=== PATIENT | male | born 1925 | race African-American/Black ===

== ENCOUNTER 2016-08-19 02:58 | Inpatient (IN) | payer MEDICARE ==
[2016-08-19] VITALS (62 sets, daily range): BP systolic 72–157; BP diastolic 37–109
[~2016-08-19] VITALS: Ht 177.8 cm; Wt 71.7 kg
[2016-08-19] MEDS ORDERED: ASCORBIC ACID500 MG ORAL (03:23)
[2016-08-19] MEDS ORDERED: ATORVASTATIN CA40 MG ORAL (03:23)
[2016-08-19] MEDS ORDERED: ASPIR 8181 MG ORAL (03:23)
[2016-08-19] MEDS ORDERED: SORBITOL SOLUT500 ML MC (03:33)
[2016-08-19] MEDS ORDERED: TROSPIUM CHLORI20 MG PO (03:33)
[2016-08-19] MEDS ORDERED: MINERAL OIL EN133 ML RC (03:33)
[2016-08-19] MEDS ORDERED: DOCUSATE SODIU250 MG ORAL (03:33)
[2016-08-19] MEDS ORDERED: MULTIVITAMINS1 EAC2 ORAL (03:33)
[2016-08-19] MEDS ORDERED: VITAMIN D250000 UNI1 ORAL (03:33)
[2016-08-19] MEDS ORDERED: ZYLOPRIM100 MG ORAL (03:33)
[2016-08-19] MEDS ORDERED: SENNA S TABLET1 EAC1 PO (03:33)
[2016-08-19] MEDS ORDERED: TYLENOL EXTRA500 MG ORAL (03:33)
[2016-08-19] MEDS ORDERED: COREG25 MG ORAL (03:33)
--- NOTE | 2016-08-19 03:39 | Emergency Room Report ---
History of Present Illness General Chief Complaint: Abnormal Labs Source: Medical Record Present Illness HPI Patient was sent in from custodial with initial complaint of altered mental status Patient had respiratory distress as well Upon arrival of paramedics patient was found to be critically low with glucose Patient did not have IV access and therefore was given glucagon Became somewhat more responsive patient himself continues to be altered and confused history from the patient is not able to be obtained Nursing facility reports change in the patient's respirations over the night No reports of vomiting or diarrhea Unknown regarding chest pain or headache Allergies: Coded Allergies: NSAIDS (NON-STEROIDAL ANTI-INFLAMMA (Verified Allergy, Unknown, 08/19/16) Patient History Past Medical History: see triage record Pertinent Family History: none Reviewed Nursing Documentation: PMH: Agreed, PSxH: Agreed Nursing Documentation-PMH Hx Hypertension: Yes - aortic valve stenosis, left ventricular thrombus Hx Pacemaker: Yes Review of Systems All Other Systems: limited - Other than the ones mentioned in the history of present illness all others are reviewed however they do stay limited due to the patient's mental status Physical Exam Vital Signs Date Time Temp Pulse Resp B/P Pulse Ox O2 Delivery O2 Flow Rate FiO2 08/19/16 02:50 96.4 78 18 115/71 91 Nasal Cannula 4.0 Sp02 EP Interpretation: reviewed, abnormal - On 2 L nasal cannula patient saturates at 98% which is normal General Appearance: moderate distress - Patient appears uncomfortable, mildly tachypneic, sluggish to respond Head: normocephalic, atraumatic Eyes: bilateral eye PERRL ENT: dry mucus membranes Neck: supple, thyroid normal Respiratory: crackles - And mildly tachypneic Cardiovascular #1: regular rate, rhythm, no edema Gastrointestinal: normal bowel sounds, non tender, soft Genitourinary: no CVA tenderness Musculoskeletal: other - No obvious focal deficits patient moves towards physical stimuli in the upper extremity, Neurologic: responsive - To physical stimuli Skin: other - Multiple bruising in the upper extremity evidence of previous right lower abdominal surgery pacemaker palpable left upper chest, Lymphatic: no adenopathy Procedures Critical Care Time Critical Care Time 40 minutes for multiple re\re evaluations Critical presentation findings concerning for respiratory failure And cardiopulmonary failureNot including any procedural time Central Line Central Line : Consent: Emergent Central Line Lumen: triple Maximal Sterile Barrier Tech: yes cap, yes mask, yes sterile gown, yes sterile gloves, yes large sterile sheet, yes hand hygiene, yes chlorhexidine prep Central Line Postion: femoral (R) Anesthesia: Lidocaine cc's of anesthesia: 5 Complications: none Central Line Post Position: sutured Attempts: One Patient Tolerated: Well Complications: None Medical Decision Making Diagnostic Impression: Primary Impression: Sepsis Additional Impressions: CHF (congestive heart failure) Hypoglycemia ER Course Patient is a fairly complex patient with multiple differential to consideration including but not limited to cardiac cardiopulmonary and vascular emergencies Patient required multiple boluses of glucose to increase the glucose level Patient's blood pressure also remained low requiring dopamine drip From previous medical records appears the patient has significant cardiac disease with 20% ef Patient's x-rays also abnormal with signs of atelectasis versus congestion Patient required BiPAP at this time for improved aeration Patient extremely critical at this time unstable for transfer Labs Test 08/19/16 03:20 08/19/16 04:30 08/19/16 04:37 08/19/16 04:40 White Blood Count 13.0 K/UL (4.8-10.8) Red Blood Count 4.51 M/UL (4.70-6.10) Hemoglobin 12.8 G/DL (14.2-18.0) Hematocrit 38.7 % (42.0-52.0) Mean Corpuscular Volume 86 FL (80-99) Mean Corpuscular Hemoglobin 28.3 PG (27.0-31.0) Mean Corpuscular Hemoglobin Concent 32.9 G/DL (32.0-36.0) Red Cell Distribution Width 16.2 % (11.6-14.8) Platelet Count 134 K/UL (150-450) Mean Platelet Volume 8.0 FL (6.5-10.1) Neutrophils (%) (Auto) % (45.0-75.0) Lymphocytes (%) (Auto) % (20.0-45.0) Monocytes (%) (Auto) % (1.0-10.0) Eosinophils (%) (Auto) % (0.0-3.0) Basophils (%) (Auto) % (0.0-2.0) Prothrombin Time 15.8 SEC (9.30-11.50) Prothromb Time International Ratio 1.5 (0.9-1.1) Activated Partial Thromboplast Time 33 SEC (23-33) Sodium Level 140 mEQ/L (135-145) Potassium Level 4.9 mEQ/L (3.4-4.9) Chloride Level 103 mEQ/L (98-107) Carbon Dioxide Level 19 mEQ/L (20-30) Anion Gap 18 (5-15) Blood Urea Nitrogen 107 mg/dL (7-23) Creatinine 3.3 mg/dL (0.7-1.2) Estimat Glomerular Filtration Rate mL/min (>60) Glucose Level 243 mg/dL (74-106) Lactic Acid Level 2.00 mmol/L (0.66-2.22) Calcium Level 8.0 mg/dL (8.6-10.2) Total Bilirubin 0.8 mg/dL (0.0-1.2) Aspartate Amino Transf (AST/SGOT) 111 U/L (5-40) Alanine Aminotransferase (ALT/SGPT) 36 U/L (3-41) Alkaline Phosphatase 75 U/L (40-129) Total Creatine Kinase 4442 U/L (38-174) Creatine Kinase MB 31.9 ng/mL (< 6.7) Creatine Kinase MB Relative Index 0.7 Troponin I < 0.30 ng/mL (<=0.30) Pro-B-Type Natriuretic Peptide 22269 pg/mL (0-450) Total Protein 5.4 g/dL (6.6-8.7) Albumin 2.2 g/dL (3.5-5.2) Globulin 3.2 g/dL Albumin/Globulin Ratio 0.6 (1.0-2.7) Lipase 44 U/L (< 60) Urine Color Yellow Urine Appearance Clear Urine pH 5 (4.5-8.0) Urine Specific [place] 1.015 (1.005-1.035) Urine Protein 1+ (NEGATIVE) Urine Glucose (UA) Negative (NEGATIVE) Urine Ketones Negative (NEGATIVE) Urine Occult Blood 5+ (NEGATIVE) Urine Nitrite Negative (NEGATIVE) Urine Bilirubin Negative (NEGATIVE) Urine Urobilinogen 1 MG/DL (0.0-1.0) Urine Leukocyte Esterase 1+ (NEGATIVE) Urine RBC 5-10 /HPF (0 - 0) Urine WBC 0-2 /HPF (0 - 0) Urine Squamous Epithelial Cells None /LPF (NONE/OCC) Urine Bacteria Few /HPF (NONE) Urine Fine Granular Casts 0-2 /LPF (NONE) Urine Coarse Granular Casts 0-2 /LPF (NONE) Urine Sperm Few /LPF (NONE) Arterial Blood pH 7.406 (7.350-7.450) Arterial Blood Partial Pressure CO2 19.7 mmHg (35.0-45.0) Arterial Blood Partial Pressure O2 236.5 mmHg (75.0-100.0) Arterial Blood HCO3 12.1 mmol/L (22.0-26.0) Arterial Blood Oxygen Saturation 98.8 % (92.0-98.0) Arterial Blood Base Excess -10.4 Alpesh Test Positive EKG Diagnostic Results Rate: normal Rhythm: NSR ST Segments: other - Prolonged QRS, nonspecific ST and T-wave changes, abnormal EKG, evidence of pacer as well Rhythm Strip Diag. Results EP Interpretation: yes Rate: 66 Rhythm: NSR, no PVC's, no ectopy Chest X-Ray Diagnostic Results EP Interpretation: Yes Findings: no consolidation, no pneumothorax, other - Mediastinum is wide, cardiomegaly, bilateral lower lobe atelectasis left lower lobe increased markings, pulmonary congestion Number of Views: 1 CT/MRI/US Diagnostic Results CT/MRI/US Diagnostic Results : Impression CT head no acute disease Last Vital Signs Date Time Temp Pulse Resp B/P Pulse Ox O2 Delivery O2 Flow Rate FiO2 08/19/16 02:50 96.4 78 18 115/71 91 Nasal Cannula 4.0 Status: improved Disposition: ADMITTED INPATIENT Condition: Critical ZAINA PATEL D.O. August 19, 2016 03:39
[2016-08-19 03:40] LABS: MEAN CORPUSCULAR HEMOGLOBIN 28.3 PG (27.0-31.0); MEAN CORPUSCULAR HGB CONC 32.9 G/DL (32.0-36.0); MEAN CORPUSCULAR VOLUME 86 FL (80-99); PLATELET COUNT 134 K/UL (150-450); RED BLOOD COUNT 4.51 M/UL (4.70-6.10); RED CELL DISTRIBUTION WIDTH 16.2 % (11.6-14.8)
[2016-08-19 03:56] LABS: INR 1.5 (0.9-1.1); PROTHROMBIN TIME 15.8 SEC (9.30-11.50)
[2016-08-19] MEDS ORDERED: Piperacillin/Tazobactam 3.375 GM in NS 110 ML IVPB ONE (04:00)
[2016-08-19] MEDS ORDERED: D5 1/2NS 1,000 ML IV SCH (04:00)
[2016-08-19 04:03] LABS: ALANINE AMINOTRANSFERASE 36 U/L (3-41); ALBUMIN/GLOBULIN RATIO 0.6 (1.0-2.7); ANION GAP 18 (5-15); ASPARTATE AMINO TRANSFERASE 111 U/L (5-40); CARBON DIOXIDE 19 mEQ/L (20-30); CHLORIDE 103 mEQ/L (98-107); CREATININE 3.3 mg/dL (0.7-1.2); HEMOLYSIS 3; LIPASE 44 U/L (< 60); POTASSIUM 4.9 mEQ/L (3.4-4.9); SODIUM 140 mEQ/L (135-145); TOTAL PROTEIN 5.4 g/dL (6.6-8.7)
[2016-08-19] MEDS ORDERED: Zosyn 3.375gm inj ONE (04:20)
[2016-08-19 04:23] LABS: TROPONIN I < 0.30 ng/mL (<=0.30)
[2016-08-19 04:28] LABS: REFLEX LACTIC ACID YES OR NO YES
[2016-08-19 04:32] LABS: CKMB 31.9 ng/mL (< 6.7)
[2016-08-19 04:33] LABS: APPEARANCE,URINE CLEAR; KETONES,URINE NEGATIVE (NEGATIVE); LEUKOCYTE ESTERASE ,URINE 1+ (NEGATIVE); NITRITE,URINE NEGATIVE (NEGATIVE); PH,URINE 5 (4.5-8.0); PROTEIN,URINE 1+ (NEGATIVE); UROBILINOGEN,URINE 1 MG/DL (0.0-1.0)
[2016-08-19] MEDS ORDERED: DOPamine 400mg/250ml 250 ML IV ONE (04:45)
[2016-08-19 05:01] LABS: BACTERIA,URINE FEW /HPF; COARSE GRANULAR CASTS,URINE 0-2 /LPF; FINE GRANULAR CASTS,URINE 0-2 /LPF; WBC,URINE 0-2 /HPF (0 - 0)
[2016-08-19 05:03] LABS: ABG ALLEN TEST POSITIVE; ABG BASE EXCESS -10.4; ABG PCO2 19.7 mmHg (35.0-45.0)
[2016-08-19] MEDS ORDERED: Sodium Bicarbonate 8.4% 50ml Inj ONE (05:29)
[2016-08-19] MEDS ORDERED: Sodium Bicarbonate 8.4% 50ml Carp IV ONE (05:30)
--- NOTE | 2016-08-19 08:44 | Diagnostic Imaging Report ---
Indications: Altered mental status Technique: Continuous helical CT imaging of the brain was performed with nonionic exposure control on a Siemens sensation [address] scanner. Axial and coronal images were reconstructed at 5 mm slice thickness and interval. CTDI volume(s): 70 mGy Total DLP: 1424 mGy-cm Findings: Comparison: None Extensive confluent low attenuation is present route the bilateral periventricular and deep cerebral white matter. Focal low-attenuation in the posterior aspect left putamen/external capsule. Ventricles, cisterns, and sulci are diffusely prominent. No evidence of mass or hemorrhage, mass effect, midline shift, hydrocephalus, or increased intracranial pressure. Bone window images are unremarkable. Mild mucoperiosteal thickening left sphenoid sinus. Remainder visualized Paranasal sinuses and mastoid air cells are clear. IMPRESSION: No evidence of acute intracranial pathology . Bilateral cerebral periventricular and deepwhite matter low attenuation, nonspecific, likely chronic microvascular ischemic in nature. Atrophy with ventriculomegaly. An element of normal pressure hydrocephalus should be considered.. Mild sinus disease This correlates with preliminary report generated overnight by [employer]. The CT scanner at [facility] is accredited by the [employer] and the scans are performed using protocols designed to limit radiation exposure to as low as reasonably achievable to attain images of sufficient resolution adequate for diagnostic evaluation.
[2016-08-19] MEDS ORDERED: Zolpidem 5mg tab ORAL PRN (08:45)
--- NOTE | 2016-08-19 08:47 | Diagnostic Imaging Report ---
Indications: Chest pain Technique: Portable AP chest Findings: Comparison: None Cardiac silhouette enlarged. Pulmonary vascular redistribution. Bilateral interstitial infiltrates. Suggestion of increased density with air bronchograms in left retrocardiac region. Indistinctness of bilateral costophrenic angles. Thoracic aorta calcified and elongated. Left chest wall pacemaker. Bones and remaining extra pulmonary soft tissues unremarkable. Mild gaseous distention of bowel in upper abdomen. IMPRESSION: Findings compatible with congestive heart failure with probable small bibasal pleural effusions Underlying atelectasis or pneumonia in left lower lobe must be considered Cardiomegaly with pacemaker Aortosclerosis and probable chronic hypertensive change Nonspecific gaseous distention of upper abdominal bowel, likely representing both small bowel and colon. Correlate clinically.
[2016-08-19] MEDS ORDERED: Heparin 5000 units/ml inj SUBQ SCH (09:00)
[2016-08-19] MEDS: Pantoprazole Inj IVP SCH (09:51)
[2016-08-19] MEDS ORDERED: Vancomycin 1.5 GM in NS 325 ML IVPB ONE ×2 (10:15→11:30)
[2016-08-19] MEDS ORDERED: Vancomycin 1.5 GM in D5W 325 ML IVPB ONE (10:30)
[2016-08-19] MEDS ORDERED: Vancomycin 1.5 GM in NS 275 ML IVPB ONE (11:00)
[2016-08-19] MEDS: Dyna-Hex 2% Top Sol 8oz TOPIC SCH (11:20)
[2016-08-19] MEDS ORDERED: Heparin 5000 units/ml inj IV ONE (12:00)
[2016-08-19] MEDS ORDERED: Heparin 25,000u/D5W 500ml 500 ML IV SCH (12:00)
--- NOTE | 2016-08-19 13:16 | Wound Care Consultation ---
Wound Assessment Wound Assessment : Wound Number: #1 Wound Present on Admission: Yes New Wound: No Status Change of Wound: No Wound Location Body Site Modif: mid Wound Location Body Site: sacral Wound Type: pressure ulcer Erna Test: Does not Erna Pressure Ulcer Stage: II - scattered Wound Thickness: Partial Thickness Wound Length: 3.5 - scattered Wound Width: 3.0 Wound Depth: 0.1 Percent of Wound [place]/Red: 100 Wound Drainage Description: Serosanguineous Wound Drainage Amount: Scant Wound Drainage Odor: None/Absent Tissue Surrounding Wound: Macerated Wound General Appearance: Reddened Wound Comment #1 Mid Sacral pressure ulcer scattered stage II. Recommendation. - Apply low air loss mattress SPR. - Local wound care as ordered. - Turn and reposition. - Optimize nutrition. - Heel protectors. - Keep clean and dry. - Offload affected sacral site. - Avoid shear and friction. - Assess and follow up with MD for any further changes of condition in skin. LONDON HIGH August 19, 2016 13:16
[2016-08-19] MEDS: Piperacillin/Tazobactam 3.375 GM in D5W 110 ML IVPB SCH (15:40)
--- NOTE | 2016-08-19 16:46 | History and Physical Report ---
DATE OF ADMISSION: 08/19/2016 REASON FOR ADMISSION: Respiratory failure. HISTORY OF PRESENT ILLNESS: The patient is an 89-year-old male presents from a [facility]. The patient with altered mental status and respiratory distress. The patient also was having low blood sugars. The patient was given glucagon with improvement overall, however, the patient was noted to be somewhat acidotic and now admitted to ICU. The patient's case discussed and reviewed with the ER physician. Patient requiring BIPAP due to respiratory distress PAST MEDICAL HISTORY: Notable for history of left ventricular thrombus, history of aortic valve stenosis, history of pacemaker, history of hypertension, and history of reported dementia. MEDICATIONS: Reviewed. ALLERGIES: Reviewed. SOCIAL HISTORY: The patient is a [facility] patient. PHYSICAL EXAMINATION: GENERAL: The patient is well developed male, appears to be chronically ill. The patient is mildly tachypneic on BiPAP. VITAL SIGNS: Reviewed. HEENT: Negative. LUNGS: Coarse breath sounds. CARDIAC: S1 and S2. Regular rate and rhythm. ABDOMEN: Soft and nontender. EXTREMITIES: cyanotic toes. There is no edema. NEUROLOGIC: poorly responsive. LABORATORY AND DIAGNOSTIC DATA: Lab data reviewed. Notable for white cell count of 13 and platelets of 154,000. BUN of 107 and creatinine 3.3. X-ray noted and reviewed. The BNP is 32,116. A chest x-ray with concern for congestive heart failure and bilateral infiltrates. IMPRESSION: 1. Respiratory failure. 2. Possible pulmonary edema. 3. Evidence of acute on chronic renal failure. 4. Hypotension. 5. Possible pneumonia. 6. Possible underlying sepsis. 7. Hypoglycemia. 8. LV thrombus with poor EF 9. PVD with pregangrene changes RECOMMENDATION: Dopamine as needed. We will obtain renal evaluation. We will give empiric antibiotics. We will follow with labs in the morning. We will obtain ID evaluation Monitor need for diuresis. Heparin and BiPAP management. The patient is not stable for discharge at this time and will need close monitoring. evaluate in am for transfer to [facility] Jacobo Dove M.D. DR: NAOMI JOB#: [id number] CC: KO
[2016-08-19] MEDS ORDERED: DOPamine 400mg/250ml 250 ML IV SCH (18:15)
--- NOTE | 2016-08-19 19:32 | General Progress Note ---
Progress Note Progress Note Dictated consult to follow Asked to eval re cold feet Bilateral blue toes both feet cold Left foot left leg pregangrenous upto below knee Left foot drop with no movements Intact femoral popliteals and weak right PT dopplers Dementia shelter resident Non ambulatory CVA Aortic stenosis EF 10% with mural clot On pressors Altered confused Imp & Rec Bilateral embolic blue toes and severe leg ischemia from mural clot low EF and severe PAD Left leg not salvageable and will need amputation above knee once more stable & medically optimized and fully demarcated Heparin drip Cards eval optimization Decub precautions d/w AUTOMATION TENDER and daughter at bedside d/w pmd SOHAM PHILLIPS August 19, 2016 19:32
--- NOTE | 2016-08-19 21:32 | Consultation ---
DATE OF CONSULTATION: 08/19/2016 This consultation is for coverage of Dr. Nowak. CONSULTING PHYSICIAN: Jeff Caraballo M.D. REASON FOR CONSULTATION: Sepsis. HISTORY OF PRESENT ILLNESS: This is an 89-year-old admitted today from [facility] with altered mental status. The patient was found to have hyperglycemia , also was hypotensive with the lowest blood pressure of 79/49. The patient had a femoral placement placement and transferred to ICU. 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 PAST SURGICAL HISTORY: The patient is status post defibrillator placement, bilateral cataract surgery, and bilateral knee surgeries. ALLERGIES: To nonsteroidal anti-inflammatory drugs. MEDICATIONS: He is getting Zosyn, vancomycin one dose, heparin, Protonix, sodium chloride, Mylanta, and Tylenol. REVIEW OF SYSTEMS: The patient is verbal. Slightly confused. Has pain and discoloration in the left lower extremity. No other history obtainable. SOCIAL HISTORY: The patient is a prison resident. No history of alcohol, drug abuse, or smoking. Has a son, who has been at bedside. PHYSICAL EXAMINATION: VITAL SIGNS: Temperature is 97.6, pulse 74, and blood pressure is 96/62. GENERAL APPEARANCE: He seems to be thin. HEAD AND NECK: Getting oxygen by cannula. HEART: Regular. There is a pacemaker defibrillator on the left side. LUNGS: Clear. ABDOMEN: Soft and nontender. EXTREMITIES: Edema in the left lower extremity. He has a skin discoloration in the left lower extremity. He has coolness in both lower extremities. He has poor peripheral pulses. LABORATORY AND DIAGNOSTIC DATA: WBC 13, hemoglobin 12.8, hematocrit 38.7, and platelets are 134,000. Sodium of 140, potassium 4.9, BUN 107, creatinine 2.3, and glucose 243. AST 111. CK is 4442, CK-MB is 31.9, and BNP is 32,116. Albumin is 2.2. Chest x-ray showed congestive heart failure and bilateral effusion. CT scan of the head no acute intracranial pathology. Mild sinus disease. IMPRESSION: 1. Sepsis. 2. Systemic inflammatory response syndrome. 3. The patient seems to have acute renal failure. 4. Leukocytosis. 5. Hypotension. 6. Coolness of the left lower extremity. We will try to rule out emboli. 7. He has a history of congestive heart failure and cardiomyopathy. 8. He has a history of coronary artery disease. 9. He has a history of cerebrovascular accident. RECOMMENDATION: 1. We will continue with current medications, vancomycin and Zosyn. 2. We will follow up the cultures. 3. We are going to order arterial ultrasound of left lower extremity. At the end of my exam, I thank primary doctor for involving me in the care of this patient. Jeff Caraballo M.D. DR: GALILEO JOB#: [id number] CC:
[2016-08-19] MEDS: Heparin 25,000u/D5W 500ml 500 ML IV SCH (23:16)
[2016-08-20] VITALS (19 sets, daily range): BP systolic 89–119; BP diastolic 65–88
--- NOTE | 2016-08-20 01:03 | Consultation ---
DATE OF CONSULTATION: NEPHROLOGY CONSULTATION CONSULTING PHYSICIAN: Davina Bolden M.D. ATTENDING PHYSICIAN: Jacobo Dove M.D. REASON FOR CONSULTATION: Elevated BUN and creatinine. HISTORY OF PRESENT ILLNESS: This is an 89-year-old male who was admitted to the hospital with abnormal laboratory results from the emergency department. The patient was admitted with altered level of consciousness. He presented also with the respiratory distress and hypotension. The patient also presented with critically low blood sugar. The patient was also noted to have elevated BUN and creatinine and was admitted to ICU with septicemia. The patient is unable to provide any history. PAST MEDICAL HISTORY: 1. Encephalopathy. 2. Hypertensive cardiovascular disease. 3. Chronic kidney disease, etiology unclear. 4. Coronary artery disease. 5. Cardiomyopathy. 6. COPD. 7. Aortic valve stenosis. 8. Status post biventricular AICD. 9. History of left ventricular thrombus. 10. Low-grade rhabdomyolysis. HOME MEDICATIONS: Vitamin C, baby aspirin, atorvastatin, Coreg, sodium docusate, vitamin D, bisacodyl, mineral oil, multivitamins, [place] tablets, senna tablets, and sorbitol. ALLERGIES: No known drug allergies. FAMILY HISTORY: Unable to obtain. SOCIAL HISTORY: Unable to obtain. REVIEW OF SYSTEMS: Unable to obtain. PHYSICAL EXAMINATION: GENERAL: This is an elderly male who is in no acute distress. VITAL SIGNS: Blood pressure 96/62, pulse 72, on dopamine drip, respirations 20, O2 saturation is 92% on 3 liters/minute nasal cannula, and temperature 97.6. HEENT: The head is normocephalic and atraumatic. He has very poor dentition. NECK: Supple. Trachea midline. There was no lymphadenopathy or thyromegaly. LUNGS: Bilateral rhonchi. HEART: Regular rate and rhythm without rubs, murmurs, or gallops. ABDOMEN: Soft and nontender. Bowel sounds are active. EXTREMITIES: He has bilateral leg edema. NEUROLOGICAL: He is confused. There were no gross focal findings. LABORATORY AND ANCILLARY DATA: CBC, white count 13,000, otherwise within normal limits. Serum chemistry and electrolytes within normal limits. CO2 was 19, creatinine 3.3, and BUN 107. CPK 4442. Urinalysis, 1+ protein, sediment essentially within normal limits. ASSESSMENT: Septicemia, etiology and source unclear. PLAN: 1. Continue IV fluid rehydration. 2. Continue IV antibiotics. 3. Monitor the patient's laboratory results. Thank you, Dr. Dove, for letting me participate in the care of this patient. Davina Bolden M.D. DR: MIRELA JOB#: [id number] CC:
[2016-08-20] MEDS: Piperacillin/Tazobactam 3.375 GM in D5W 110 ML IVPB SCH ×2 (04:13→15:35)
[2016-08-20 05:09] LABS: MEAN CORPUSCULAR HEMOGLOBIN 28.3 PG (27.0-31.0); MEAN CORPUSCULAR VOLUME 86 FL (80-99); MEAN PLATELET VOLUME 7.9 FL (6.5-10.1); PLATELET COUNT 144 K/UL (150-450); RED BLOOD COUNT 4.37 M/UL (4.70-6.10); RED CELL DISTRIBUTION WIDTH 16.7 % (11.6-14.8); WHITE BLOOD COUNT 16.1 K/UL (4.8-10.8)
[2016-08-20 05:44] LABS: ALANINE AMINOTRANSFERASE 41 U/L (3-41); ALBUMIN/GLOBULIN RATIO 0.6 (1.0-2.7); ANION GAP 16 (5-15); ASPARTATE AMINO TRANSFERASE 96 U/L (5-40); CALCIUM 7.3 mg/dL (8.6-10.2); CARBON DIOXIDE 20 mEQ/L (20-30); CHLORIDE 109 mEQ/L (98-107); CREATININE 2.3 mg/dL (0.7-1.2); HEMOLYSIS 3; PHOSPHORUS 5.2 mg/dL (2.5-4.8); POTASSIUM 3.7 mEQ/L (3.4-4.9); SODIUM 145 mEQ/L (135-145); TOTAL PROTEIN 5.2 g/dL (6.6-8.7)
[2016-08-20] MEDS ORDERED: Norco 5mg/325mg tab ORAL PRN ×2 (07:30)
[2016-08-20 08:16] LABS: BAND NEUTROPHILS % (MANUAL) 2 % (0-8); LYMPHOCYTES % (MANUAL) 5 % (20-45); NEUTROPHILS % (MANUAL) 90 % (45-75); TOTAL CELLS COUNTED 100
[2016-08-20 08:17] LABS: ANISOCYTOSIS 1+; BASOPHILS % (MANUAL) 0 % (0-2); EOSINOPHILS % (MANUAL) 0 % (0-3); PLATELET ESTIMATE DECREASED; PLATELET MORPHOLOGY NORMAL
[2016-08-20 08:18] LABS: HYPOCHROMASIA 1+
--- NOTE | 2016-08-20 08:21 | Critical Care Progress Note ---
Assessment/Plan Assessment/Plan IMPRESSION: 1. Respiratory failure. 2. Possible pulmonary edema. 3. Evidence of acute on chronic renal failure. 4. Hypotension. 5. Possible pneumonia. 6. Possible underlying sepsis. 7. Hypoglycemia. 8. blue toes/cold feet 9. left foot pregangrenous 10. PVD 11. reduced EF with LV clot PLAN improved heparin transfer antibiotics will need amputation vascular noted off pressors Critical Care - Subjective Interval Events: overall better off BIPAP all appreciated pressures adequate ROS Limited/Unobtainable: Yes Condition: critical, improving EKG Rhythm: Sinus Rhythm I&O: Intake and Output 08/19/16 08/20/16 19:00 07:00 Intake Total 1077.980 ml 1420.70 ml Output Total 685 ml 395 ml Balance 392.980 ml 1025.70 ml Intake IV Total 1077.980 ml 1420.70 ml Output Urine Total 685 ml 395 ml Critical Care - Objective Last 24 Hour Vital Signs Date Time Temp Pulse Resp B/P Pulse Ox O2 Delivery O2 Flow Rate FiO2 08/20/16 08:00 97.9 77 20 112/85 100 Nasal Cannula 3.0 08/20/16 07:00 70 15 105/87 100 Nasal Cannula 3.0 08/20/16 06:00 72 19 114/88 100 Nasal Cannula 3.0 08/20/16 05:00 76 19 110/76 100 Nasal Cannula 3.0 08/20/16 04:00 97.2 72 20 109/71 98 Nasal Cannula 3.0 08/20/16 04:00 72 08/20/16 03:00 69 18 98/76 100 Nasal Cannula 3.0 08/20/16 02:00 67 17 110/88 98 Nasal Cannula 3.0 08/20/16 01:00 71 21 99/65 100 Nasal Cannula 3.0 08/20/16 00:00 97.6 69 16 111/75 98 Nasal Cannula 3.0 08/20/16 00:00 68 08/19/16 23:00 68 14 117/60 99 Nasal Cannula 3.0 08/19/16 22:30 69 15 104/61 98 Nasal Cannula 3.0 08/19/16 22:00 74 18 108/77 100 Nasal Cannula 3.0 08/19/16 21:40 97.8 08/19/16 21:30 88 21 97/80 100 Nasal Cannula 3.0 08/19/16 21:00 78 08/19/16 21:00 71 19 113/63 99 Nasal Cannula 3.0 08/19/16 20:30 91 20 135/97 98 Nasal Cannula 3.0 08/19/16 20:15 80 20 122/84 98 Nasal Cannula 3.0 08/19/16 20:00 97.5 82 20 107/68 98 Nasal Cannula 3.0 08/19/16 20:00 82 08/19/16 19:45 84 21 116/78 98 Nasal Cannula 3.0 08/19/16 19:30 77 22 157/68 98 Nasal Cannula 3.0 08/19/16 19:15 69 16 106/56 94 Nasal Cannula 3.0 08/19/16 19:11 Nasal Cannula 3.0 32 08/19/16 19:11 96 Nasal Cannula 3.0 30 08/19/16 19:00 69 16 109/84 94 Nasal Cannula 3.0 08/19/16 19:00 102/59 08/19/16 18:45 71 18 109/84 93 Nasal Cannula 3.0 08/19/16 18:30 69 19 104/73 96 Nasal Cannula 3.0 08/19/16 18:16 107/77 08/19/16 18:15 69 19 100/66 97 Nasal Cannula 3.0 08/19/16 18:00 68 19 107/77 96 Nasal Cannula 3.0 08/19/16 17:45 68 17 98/69 96 Nasal Cannula 3.0 08/19/16 17:30 63 18 107/71 96 Nasal Cannula 3.0 08/19/16 17:15 63 18 107/71 96 Nasal Cannula 3.0 08/19/16 17:00 68 18 81/37 96 Nasal Cannula 3.0 08/19/16 16:45 72 22 72/47 95 Nasal Cannula 3.0 08/19/16 16:30 69 20 91/68 95 Nasal Cannula 3.0 08/19/16 16:15 68 18 107/56 95 Nasal Cannula 3.0 08/19/16 16:00 97.9 71 18 103/78 94 Nasal Cannula 3.0 08/19/16 16:00 73 08/19/16 15:00 68 18 95/71 95 Nasal Cannula 3.0 08/19/16 14:45 68 20 100/72 95 Nasal Cannula 3.0 08/19/16 14:30 74 20 100/72 95 Nasal Cannula 3.0 08/19/16 14:15 71 20 94/73 95 Nasal Cannula 3.0 08/19/16 14:00 69 19 130/85 95 Nasal Cannula 3.0 08/19/16 13:45 70 19 112/88 95 Nasal Cannula 3.0 08/19/16 13:43 72 20 92 3.0 08/19/16 13:30 72 19 109/69 95 Nasal Cannula 3.0 08/19/16 13:15 78 17 109/69 95 Nasal Cannula 3.0 08/19/16 13:00 77 18 109/69 95 Nasal Cannula 3.0 08/19/16 12:45 74 17 96/62 97 Nasal Cannula 3.0 08/19/16 12:30 73 17 96/62 95 Nasal Cannula 3.0 08/19/16 12:15 72 18 96/62 95 Nasal Cannula 3.0 08/19/16 12:00 97.6 70 17 100/75 100 Bi-pap 30 08/19/16 12:00 67 08/19/16 11:45 69 14 92/65 95 Nasal Cannula 3.0 08/19/16 11:30 70 14 105/56 96 Nasal Cannula 3.0 08/19/16 11:15 73 15 105/56 95 Nasal Cannula 3.0 08/19/16 11:00 72 15 90/54 95 Nasal Cannula 3.0 08/19/16 10:54 74 20 95 3.0 08/19/16 10:47 63 21 95 Facial 30 08/19/16 10:45 72 15 90/54 95 Bi-pap 30 08/19/16 10:30 70 13 99/79 95 Bi-pap 30 08/19/16 10:15 70 15 101/67 100 Bi-pap 30 08/19/16 10:00 70 15 101/82 94 Bi-pap 30 08/19/16 09:45 72 14 107/65 94 Bi-pap 30 08/19/16 09:30 73 14 107/65 91 Bi-pap 30 08/19/16 09:30 69 17 94 Facial 30 08/19/16 09:15 71 14 112/79 89 Bi-pap 30 08/19/16 09:00 74 14 77/47 89 Bi-pap 30 08/19/16 08:45 71 14 105/84 100 Bi-pap 30 08/19/16 08:30 70 14 102/74 100 Bi-pap 30 Labs: Labs Test 08/19/16 03:20 08/19/16 04:30 08/19/16 04:37 08/19/16 04:40 White Blood Count 13.0 K/UL (4.8-10.8) Red Blood Count 4.51 M/UL (4.70-6.10) Hemoglobin 12.8 G/DL (14.2-18.0) Hematocrit 38.7 % (42.0-52.0) Mean Corpuscular Volume 86 FL (80-99) Mean Corpuscular Hemoglobin 28.3 PG (27.0-31.0) Mean Corpuscular Hemoglobin Concent 32.9 G/DL (32.0-36.0) Red Cell Distribution Width 16.2 % (11.6-14.8) Platelet Count 134 K/UL (150-450) Mean Platelet Volume 8.0 FL (6.5-10.1) Neutrophils (%) (Auto) % (45.0-75.0) Lymphocytes (%) (Auto) % (20.0-45.0) Monocytes (%) (Auto) % (1.0-10.0) Eosinophils (%) (Auto) % (0.0-3.0) Basophils (%) (Auto) % (0.0-2.0) Prothrombin Time 15.8 SEC (9.30-11.50) Prothromb Time International Ratio 1.5 (0.9-1.1) Activated Partial Thromboplast Time 33 SEC (23-33) Sodium Level 140 mEQ/L (135-145) Potassium Level 4.9 mEQ/L (3.4-4.9) Chloride Level 103 mEQ/L (98-107) Carbon Dioxide Level 19 mEQ/L (20-30) Anion Gap 18 (5-15) Blood Urea Nitrogen 107 mg/dL (7-23) Creatinine 3.3 mg/dL (0.7-1.2) Estimat Glomerular Filtration Rate mL/min (>60) Glucose Level 243 mg/dL (74-106) Lactic Acid Level 2.00 mmol/L (0.66-2.22) 1.70 mmol/L (0.66-2.22) Calcium Level 8.0 mg/dL (8.6-10.2) Total Bilirubin 0.8 mg/dL (0.0-1.2) Aspartate Amino Transf (AST/SGOT) 111 U/L (5-40) Alanine Aminotransferase (ALT/SGPT) 36 U/L (3-41) Alkaline Phosphatase 75 U/L (40-129) Total Creatine Kinase 4442 U/L (38-174) Creatine Kinase MB 31.9 ng/mL (< 6.7) Creatine Kinase MB Relative Index 0.7 Troponin I < 0.30 ng/mL (<=0.30) Pro-B-Type Natriuretic Peptide 67742 pg/mL (0-450) Total Protein 5.4 g/dL (6.6-8.7) Albumin 2.2 g/dL (3.5-5.2) Globulin 3.2 g/dL Albumin/Globulin Ratio 0.6 (1.0-2.7) Lipase 44 U/L (< 60) Urine Color Yellow Urine Appearance Clear Urine pH 5 (4.5-8.0) Urine Specific [place] 1.015 (1.005-1.035) Urine Protein 1+ (NEGATIVE) Urine Glucose (UA) Negative (NEGATIVE) Urine Ketones Negative (NEGATIVE) Urine Occult Blood 5+ (NEGATIVE) Urine Nitrite Negative (NEGATIVE) Urine Bilirubin Negative (NEGATIVE) Urine Urobilinogen 1 MG/DL (0.0-1.0) Urine Leukocyte Esterase 1+ (NEGATIVE) Urine RBC 5-10 /HPF (0 - 0) Urine WBC 0-2 /HPF (0 - 0) Urine Squamous Epithelial Cells None /LPF (NONE/OCC) Urine Bacteria Few /HPF (NONE) Urine Fine Granular Casts 0-2 /LPF (NONE) Urine Coarse Granular Casts 0-2 /LPF (NONE) Urine Sperm Few /LPF (NONE) Arterial Blood pH 7.406 (7.350-7.450) Arterial Blood Partial Pressure CO2 19.7 mmHg (35.0-45.0) Arterial Blood Partial Pressure O2 236.5 mmHg (75.0-100.0) Arterial Blood HCO3 12.1 mmol/L (22.0-26.0) Arterial Blood Oxygen Saturation 98.8 % (92.0-98.0) Arterial Blood Base Excess -10.4 Alpesh Test Positive Test 08/19/16 18:12 08/20/16 04:00 Activated Partial Thromboplast Time > 150 SEC (23-33) 84 SEC (23-33) White Blood Count 16.1 K/UL (4.8-10.8) Red Blood Count 4.37 M/UL (4.70-6.10) Hemoglobin 12.4 G/DL (14.2-18.0) Hematocrit 37.5 % (42.0-52.0) Mean Corpuscular Volume 86 FL (80-99) Mean Corpuscular Hemoglobin 28.3 PG (27.0-31.0) Mean Corpuscular Hemoglobin Concent 33.0 G/DL (32.0-36.0) Red Cell Distribution Width 16.7 % (11.6-14.8) Platelet Count 144 K/UL (150-450) Mean Platelet Volume 7.9 FL (6.5-10.1) Neutrophils (%) (Auto) % (45.0-75.0) Lymphocytes (%) (Auto) % (20.0-45.0) Monocytes (%) (Auto) % (1.0-10.0) Eosinophils (%) (Auto) % (0.0-3.0) Basophils (%) (Auto) % (0.0-2.0) Differential Total Cells Counted 100 Neutrophils % (Manual) 90 % (45-75) Lymphocytes % (Manual) 5 % (20-45) Monocytes % (Manual) 3 % (1-10) Eosinophils % (Manual) 0 % (0-3) Basophils % (Manual) 0 % (0-2) Band Neutrophils 2 % (0-8) Platelet Estimate Decreased Platelet Morphology Normal Hypochromasia 1+ Anisocytosis 1+ Sodium Level 145 mEQ/L (135-145) Potassium Level 3.7 mEQ/L (3.4-4.9) Chloride Level 109 mEQ/L (98-107) Carbon Dioxide Level 20 mEQ/L (20-30) Anion Gap 16 (5-15) Blood Urea Nitrogen 84 mg/dL (7-23) Creatinine 2.3 mg/dL (0.7-1.2) Estimat Glomerular Filtration Rate mL/min (>60) Glucose Level 87 mg/dL (74-106) Calcium Level 7.3 mg/dL (8.6-10.2) Phosphorus Level 5.2 mg/dL (2.5-4.8) Total Bilirubin 0.9 mg/dL (0.0-1.2) Aspartate Amino Transf (AST/SGOT) 96 U/L (5-40) Alanine Aminotransferase (ALT/SGPT) 41 U/L (3-41) Alkaline Phosphatase 110 U/L (40-129) Total Creatine Kinase 3447 U/L (38-174) Pro-B-Type Natriuretic Peptide 10360 pg/mL (0-450) Total Protein 5.2 g/dL (6.6-8.7) Albumin 2.1 g/dL (3.5-5.2) Globulin 3.1 g/dL Albumin/Globulin Ratio 0.6 (1.0-2.7) Objective: GENERAL: The patient is well developed male, appears to be chronically ill. HEENT: Negative. LUNGS: Coarse breath sounds. improved CARDIAC: S1 and S2. Regular rate and rhythm. ABDOMEN: Soft and nontender. no distention EXTREMITIES: blue toes bilaterally NEUROLOGIC: improved LOC Micro: Microbiology Date/Time Source Procedure Growth Status 08/19/16 03:20 Blood Blood Culture - Preliminary NO GROWTH AFTER 24 HOURS Resulted 08/19/16 03:20 Blood Blood Culture - Preliminary NO GROWTH AFTER 24 HOURS Resulted Accucheck: 251 ROSA RICE August 20, 2016 08:21
[2016-08-20] MEDS: Pantoprazole Inj IVP SCH (08:35)
[2016-08-20 09:21] LABS: ABG ALLEN TEST POSITIVE; ABG PCO2 23.7 mmHg (35.0-45.0)
[2016-08-20] MEDS: Dyna-Hex 2% Top Sol 8oz TOPIC SCH (10:37)
--- NOTE | 2016-08-20 10:58 | Diagnostic Imaging Report ---
Indication: Cough Technique: One view of the chest Comparison: 08/19/2016 Findings: There is increased retrocardiac opacity. There is increased hazy right basilar opacity. The heart remains enlarged. Left chest biventricular AICD with 2 left coronary sinus leads again demonstrated Impression: Increasing opacity at left lung base, may reflect increasing pleural fluid and/or retrocardiac consolidation Increased hazy opacity of the right lung as well, likewise may reflect increasing pleural fluid and/or increasing parenchymal edema or consolidation Other findings as noted
--- NOTE | 2016-08-20 10:59 | Nephrology Progress Note ---
Assessment/Plan Plan Sepsis - IV Abx., IVF. Non oliguric ARF. Labs better Acute Rhabdomyolysis CPK decreasing. Improving very slowly. Subjective Subjective Obtunded, confused Objective Objective Last 24 Hour Vital Signs Date Time Temp Pulse Resp B/P Pulse Ox O2 Delivery O2 Flow Rate FiO2 08/20/16 10:00 75 18 115/68 100 Nasal Cannula 3.0 08/20/16 09:00 75 17 103/74 100 Nasal Cannula 3.0 08/20/16 08:00 71 08/20/16 08:00 97.9 77 20 112/85 100 Nasal Cannula 3.0 08/20/16 07:00 97 Nasal Cannula 3.0 32 08/20/16 07:00 70 15 105/87 100 Nasal Cannula 3.0 08/20/16 07:00 Nasal Cannula 3.0 32 08/20/16 06:00 72 19 114/88 100 Nasal Cannula 3.0 08/20/16 05:00 76 19 110/76 100 Nasal Cannula 3.0 08/20/16 04:00 97.2 72 20 109/71 98 Nasal Cannula 3.0 08/20/16 04:00 72 08/20/16 03:00 69 18 98/76 100 Nasal Cannula 3.0 08/20/16 02:00 67 17 110/88 98 Nasal Cannula 3.0 08/20/16 01:00 71 21 99/65 100 Nasal Cannula 3.0 08/20/16 00:00 97.6 69 16 111/75 98 Nasal Cannula 3.0 08/20/16 00:00 68 08/19/16 23:00 68 14 117/60 99 Nasal Cannula 3.0 08/19/16 22:30 69 15 104/61 98 Nasal Cannula 3.0 08/19/16 22:00 74 18 108/77 100 Nasal Cannula 3.0 08/19/16 21:40 97.8 08/19/16 21:30 88 21 97/80 100 Nasal Cannula 3.0 08/19/16 21:00 78 08/19/16 21:00 71 19 113/63 99 Nasal Cannula 3.0 08/19/16 20:30 91 20 135/97 98 Nasal Cannula 3.0 08/19/16 20:15 80 20 122/84 98 Nasal Cannula 3.0 08/19/16 20:00 97.5 82 20 107/68 98 Nasal Cannula 3.0 08/19/16 20:00 82 08/19/16 19:45 84 21 116/78 98 Nasal Cannula 3.0 08/19/16 19:30 77 22 157/68 98 Nasal Cannula 3.0 08/19/16 19:15 69 16 106/56 94 Nasal Cannula 3.0 08/19/16 19:11 Nasal Cannula 3.0 32 08/19/16 19:11 96 Nasal Cannula 3.0 30 08/19/16 19:00 69 16 109/84 94 Nasal Cannula 3.0 08/19/16 19:00 102/59 08/19/16 18:45 71 18 109/84 93 Nasal Cannula 3.0 08/19/16 18:30 69 19 104/73 96 Nasal Cannula 3.0 08/19/16 18:16 107/77 08/19/16 18:15 69 19 100/66 97 Nasal Cannula 3.0 08/19/16 18:00 68 19 107/77 96 Nasal Cannula 3.0 08/19/16 17:45 68 17 98/69 96 Nasal Cannula 3.0 08/19/16 17:30 63 18 107/71 96 Nasal Cannula 3.0 08/19/16 17:15 63 18 107/71 96 Nasal Cannula 3.0 08/19/16 17:00 68 18 81/37 96 Nasal Cannula 3.0 08/19/16 16:45 72 22 72/47 95 Nasal Cannula 3.0 08/19/16 16:30 69 20 91/68 95 Nasal Cannula 3.0 08/19/16 16:15 68 18 107/56 95 Nasal Cannula 3.0 08/19/16 16:00 97.9 71 18 103/78 94 Nasal Cannula 3.0 08/19/16 16:00 73 08/19/16 15:00 68 18 95/71 95 Nasal Cannula 3.0 08/19/16 14:45 68 20 100/72 95 Nasal Cannula 3.0 08/19/16 14:30 74 20 100/72 95 Nasal Cannula 3.0 08/19/16 14:15 71 20 94/73 95 Nasal Cannula 3.0 08/19/16 14:00 69 19 130/85 95 Nasal Cannula 3.0 08/19/16 13:45 70 19 112/88 95 Nasal Cannula 3.0 08/19/16 13:43 72 20 92 3.0 08/19/16 13:30 72 19 109/69 95 Nasal Cannula 3.0 08/19/16 13:15 78 17 109/69 95 Nasal Cannula 3.0 08/19/16 13:00 77 18 109/69 95 Nasal Cannula 3.0 08/19/16 12:45 74 17 96/62 97 Nasal Cannula 3.0 08/19/16 12:30 73 17 96/62 95 Nasal Cannula 3.0 08/19/16 12:15 72 18 96/62 95 Nasal Cannula 3.0 08/19/16 12:00 97.6 70 17 100/75 100 Bi-pap 30 08/19/16 12:00 67 08/19/16 11:45 69 14 92/65 95 Nasal Cannula 3.0 08/19/16 11:30 70 14 105/56 96 Nasal Cannula 3.0 08/19/16 11:15 73 15 105/56 95 Nasal Cannula 3.0 08/19/16 11:00 72 15 90/54 95 Nasal Cannula 3.0 Intake and Output 08/19/16 08/20/16 19:00 07:00 Intake Total 1077.980 ml 1573.481 ml Output Total 685 ml 395 ml Balance 392.980 ml 1178.481 ml Intake IV Total 1077.980 ml 1573.481 ml Output Urine Total 685 ml 395 ml Laboratory Tests 08/19/16 18:12: Activated Partial Thromboplast Time > 150*H 08/20/16 04:00: Activated Partial Thromboplast Time 84H, White Blood Count 16.1H, Red Blood Count 4.37L, Hemoglobin 12.4L, Hematocrit 37.5L, Mean Corpuscular Volume 86, Mean Corpuscular Hemoglobin 28.3, Mean Corpuscular Hemoglobin Concent 33.0, Red Cell Distribution Width 16.7H, Platelet Count 144L, Mean Platelet Volume 7.9, Neutrophils (%) (Auto) , Lymphocytes (%) (Auto) , Monocytes (%) (Auto) , Eosinophils (%) (Auto) , Basophils (%) (Auto) , Differential Total Cells Counted 100, Neutrophils % (Manual) 90H, Lymphocytes % (Manual) 5L, Monocytes % (Manual) 3, Eosinophils % (Manual) 0, Basophils % (Manual) 0, Band Neutrophils 2 , Platelet Estimate DecreasedL, Platelet Morphology Normal, Hypochromasia 1+, Anisocytosis 1+, Sodium Level 145, Potassium Level 3.7, Chloride Level 109H, Carbon Dioxide Level 20, Anion Gap 16H, Blood Urea Nitrogen 84H, Creatinine 2.3H , Estimat Glomerular Filtration Rate , Glucose Level 87#, Calcium Level 7.3L, Phosphorus Level 5.2H, Total Bilirubin 0.9, Aspartate Amino Transf (AST/SGOT) 96H, Alanine Aminotransferase (ALT/SGPT) 41, Alkaline Phosphatase 110, Total Creatine Kinase 3447H, Pro-B-Type Natriuretic Peptide 07902V, Total Protein 5.2L , Albumin 2.1L, Globulin 3.1, Albumin/Globulin Ratio 0.6L 08/20/16 09:14: Arterial Blood pH 7.452H, Arterial Blood Partial Pressure CO2 23.7*L, Arterial Blood Partial Pressure O2 102.6H, Arterial Blood HCO3 16.2L, Arterial Blood Oxygen Saturation 97.5, Arterial Blood Base Excess -6.0, Alpesh Test Positive Height (Feet): 5 Height (Inches): 10.00 Weight (Pounds): 158 Objective CV RR Lungs B Ronchi Abd SNT. BS + E cold FC dark urine GUY DONAHUE August 20, 2016 10:59
--- NOTE | 2016-08-20 11:00 | Diagnostic Imaging Report ---
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 This appears well aligned. No worrisome periprosthetic lucency demonstrated. No acute fractures. No dislocations. No gross suprapatellar effusion. There are vascular calcifications. The bones are somewhat osteoporotic Impression: No acute bony trauma Knee prosthesis, no unusual features
--- NOTE | 2016-08-20 11:06 | Diagnostic Imaging Report ---
Indication: Pain Technique: 2 views of the ankle Comparison: none Findings: Exam is limited due to lack of oblique view. No acute fractures. No dislocations. Joint spaces are preserved. There is a small plantar spur. There are vascular calcifications Impression: No acute process
--- NOTE | 2016-08-20 12:34 | Infectious Diseases Prog Note ---
Assessment/Plan Assessment/Plan antibiotics : vancomycin iv, zosyn A 1. pneumonia 2. leucocytosis 3. renal failure 4. CHF 5. aortic stenosis P 1. continue zosyn 2. d/c iv vancomycin 3. sputum culture 4. will follow up cultures Subjective ROS Limited/Unobtainable: Yes Allergies: Coded Allergies: NSAIDS (NON-STEROIDAL ANTI-INFLAMMA (Verified Allergy, Unknown, 08/19/16) Objective Vital Signs Last 24 Hour Vital Signs Date Time Temp Pulse Resp B/P Pulse Ox O2 Delivery O2 Flow Rate FiO2 08/20/16 12:00 76 08/20/16 12:00 98.1 70 15 103/80 100 Nasal Cannula 3.0 08/20/16 11:00 83 19 108/87 100 Nasal Cannula 3.0 08/20/16 10:00 75 18 115/68 100 Nasal Cannula 3.0 08/20/16 09:00 75 17 103/74 100 Nasal Cannula 3.0 08/20/16 08:00 71 08/20/16 08:00 97.9 77 20 112/85 100 Nasal Cannula 3.0 08/20/16 07:00 97 Nasal Cannula 3.0 32 08/20/16 07:00 70 15 105/87 100 Nasal Cannula 3.0 08/20/16 07:00 Nasal Cannula 3.0 32 08/20/16 06:00 72 19 114/88 100 Nasal Cannula 3.0 08/20/16 05:00 76 19 110/76 100 Nasal Cannula 3.0 08/20/16 04:00 97.2 72 20 109/71 98 Nasal Cannula 3.0 08/20/16 04:00 72 08/20/16 03:00 69 18 98/76 100 Nasal Cannula 3.0 08/20/16 02:00 67 17 110/88 98 Nasal Cannula 3.0 08/20/16 01:00 71 21 99/65 100 Nasal Cannula 3.0 08/20/16 00:00 97.6 69 16 111/75 98 Nasal Cannula 3.0 08/20/16 00:00 68 08/19/16 23:00 68 14 117/60 99 Nasal Cannula 3.0 08/19/16 22:30 69 15 104/61 98 Nasal Cannula 3.0 08/19/16 22:00 74 18 108/77 100 Nasal Cannula 3.0 08/19/16 21:40 97.8 08/19/16 21:30 88 21 97/80 100 Nasal Cannula 3.0 08/19/16 21:00 78 08/19/16 21:00 71 19 113/63 99 Nasal Cannula 3.0 08/19/16 20:30 91 20 135/97 98 Nasal Cannula 3.0 08/19/16 20:15 80 20 122/84 98 Nasal Cannula 3.0 08/19/16 20:00 97.5 82 20 107/68 98 Nasal Cannula 3.0 08/19/16 20:00 82 08/19/16 19:45 84 21 116/78 98 Nasal Cannula 3.0 08/19/16 19:30 77 22 157/68 98 Nasal Cannula 3.0 08/19/16 19:15 69 16 106/56 94 Nasal Cannula 3.0 08/19/16 19:11 Nasal Cannula 3.0 32 08/19/16 19:11 96 Nasal Cannula 3.0 30 08/19/16 19:00 69 16 109/84 94 Nasal Cannula 3.0 08/19/16 19:00 102/59 08/19/16 18:45 71 18 109/84 93 Nasal Cannula 3.0 08/19/16 18:30 69 19 104/73 96 Nasal Cannula 3.0 08/19/16 18:16 107/77 08/19/16 18:15 69 19 100/66 97 Nasal Cannula 3.0 08/19/16 18:00 68 19 107/77 96 Nasal Cannula 3.0 08/19/16 17:45 68 17 98/69 96 Nasal Cannula 3.0 08/19/16 17:30 63 18 107/71 96 Nasal Cannula 3.0 08/19/16 17:15 63 18 107/71 96 Nasal Cannula 3.0 08/19/16 17:00 68 18 81/37 96 Nasal Cannula 3.0 08/19/16 16:45 72 22 72/47 95 Nasal Cannula 3.0 08/19/16 16:30 69 20 91/68 95 Nasal Cannula 3.0 08/19/16 16:15 68 18 107/56 95 Nasal Cannula 3.0 08/19/16 16:00 97.9 71 18 103/78 94 Nasal Cannula 3.0 08/19/16 16:00 73 08/19/16 15:00 68 18 95/71 95 Nasal Cannula 3.0 08/19/16 14:45 68 20 100/72 95 Nasal Cannula 3.0 08/19/16 14:30 74 20 100/72 95 Nasal Cannula 3.0 08/19/16 14:15 71 20 94/73 95 Nasal Cannula 3.0 08/19/16 14:00 69 19 130/85 95 Nasal Cannula 3.0 08/19/16 13:45 70 19 112/88 95 Nasal Cannula 3.0 08/19/16 13:43 72 20 92 3.0 08/19/16 13:30 72 19 109/69 95 Nasal Cannula 3.0 08/19/16 13:15 78 17 109/69 95 Nasal Cannula 3.0 08/19/16 13:00 77 18 109/69 95 Nasal Cannula 3.0 08/19/16 12:45 74 17 96/62 97 Nasal Cannula 3.0 Height (Feet): 5 Height (Inches): 10.00 Weight (Pounds): 158 Respiratory/Chest: lungs clear Cardiovascular: normal rate, regular rhythm, no gallop/murmur Abdomen: soft, non tender Extremities: other - + edema, left arm and left leg ecchymoses Microbiology Date/Time Source Procedure Growth Status 08/19/16 03:20 Blood Blood Culture - Preliminary NO GROWTH AFTER 24 HOURS Resulted 08/19/16 03:20 Blood Blood Culture - Preliminary NO GROWTH AFTER 24 HOURS Resulted Laboratory Tests Test 08/19/16 18:12 08/20/16 04:00 08/20/16 09:14 Activated Partial Thromboplast Time > 150 SEC (23-33) *H 84 SEC (23-33) H White Blood Count 16.1 K/UL (4.8-10.8) H Red Blood Count 4.37 M/UL (4.70-6.10) L Hemoglobin 12.4 G/DL (14.2-18.0) L Hematocrit 37.5 % (42.0-52.0) L Mean Corpuscular Volume 86 FL (80-99) Mean Corpuscular Hemoglobin 28.3 PG (27.0-31.0) Mean Corpuscular Hemoglobin Concent 33.0 G/DL (32.0-36.0) Red Cell Distribution Width 16.7 % (11.6-14.8) H Platelet Count 144 K/UL (150-450) L Mean Platelet Volume 7.9 FL (6.5-10.1) Neutrophils (%) (Auto) % (45.0-75.0) Lymphocytes (%) (Auto) % (20.0-45.0) Monocytes (%) (Auto) % (1.0-10.0) Eosinophils (%) (Auto) % (0.0-3.0) Basophils (%) (Auto) % (0.0-2.0) Differential Total Cells Counted 100 Neutrophils % (Manual) 90 % (45-75) H Lymphocytes % (Manual) 5 % (20-45) L Monocytes % (Manual) 3 % (1-10) Eosinophils % (Manual) 0 % (0-3) Basophils % (Manual) 0 % (0-2) Band Neutrophils 2 % (0-8) Platelet Estimate Decreased L Platelet Morphology Normal Hypochromasia 1+ Anisocytosis 1+ Sodium Level 145 mEQ/L (135-145) Potassium Level 3.7 mEQ/L (3.4-4.9) Chloride Level 109 mEQ/L (98-107) H Carbon Dioxide Level 20 mEQ/L (20-30) Anion Gap 16 (5-15) H Blood Urea Nitrogen 84 mg/dL (7-23) H Creatinine 2.3 mg/dL (0.7-1.2) H Estimat Glomerular Filtration Rate mL/min (>60) Glucose Level 87 mg/dL (74-106) # Calcium Level 7.3 mg/dL (8.6-10.2) L Phosphorus Level 5.2 mg/dL (2.5-4.8) H Total Bilirubin 0.9 mg/dL (0.0-1.2) Aspartate Amino Transf (AST/SGOT) 96 U/L (5-40) H Alanine Aminotransferase (ALT/SGPT) 41 U/L (3-41) Alkaline Phosphatase 110 U/L (40-129) Total Creatine Kinase 3447 U/L (38-174) H Pro-B-Type Natriuretic Peptide 87322 pg/mL (0-450) H Total Protein 5.2 g/dL (6.6-8.7) L Albumin 2.1 g/dL (3.5-5.2) L Globulin 3.1 g/dL Albumin/Globulin Ratio 0.6 (1.0-2.7) L Arterial Blood pH 7.452 (7.350-7.450) Arterial Blood Partial Pressure CO2 23.7 mmHg (35.0-45.0) *L Arterial Blood Partial Pressure O2 102.6 mmHg (75.0-100.0) H Arterial Blood HCO3 16.2 mmol/L (22.0-26.0) L Arterial Blood Oxygen Saturation 97.5 % (92.0-98.0) Arterial Blood Base Excess -6.0 Alpesh Test Positive MERCEDES TURNER August 20, 2016 12:34
[2016-08-20] MEDS: Heparin 25,000u/D5W 500ml 500 ML IV SCH (13:26)
[2016-08-20] MEDS ORDERED: Tubing IV Secondary IV ONE (17:27)
--- NOTE | 2016-08-20 18:30 | Diagnostic Imaging Report ---
APPROVED REPORT CPT Code: 83144 Symptoms Comments: Pain RIGHT LEG: Common femoral artery waveform analysis is within normal limits at rest. Color flow duplex sonography reveals mild calcification throughout the superficial femoral, and popliteal arteries. There is no evidence of stenosis or occlusion within these segments. The tibioperoneal trunks were not well visualized. The dorsalis pedis artery was occluded. The distal posterior and anterior tibial arteries are patent. Doppler waveform analysis is biphasic with low amplitude of flow, consistent, with minimal ischemia at rest. LEFT LEG: Common femoral artery waveform analysis is within normal limits at rest. Color flow duplex sonography reveals mild calcification throughout the superficial femoral artery. There is no evidence of stenosis or occlusion within this segment. No color or Doppler flow was detected in the popliteal, posterior, anterior, and dorsalis pedis tibial arteries. Findings compatible with occlusion. NOTE: Low amplitude of flow noted throughout both legs arteries, consistent, with possible low cardiac output. ALEXA Tim was notified of abnormal results at 1640 hours.
[2016-08-20] MEDS ORDERED: D5NS 1,000 ML IV SCH (19:00)
--- NOTE | 2016-08-23 17:15 | Consultation ---
DATE OF CONSULTATION: 08/19/2016 VASCULAR SURGERY CONSULTATION CONSULTING PHYSICIAN: Estevan Bailey M.D. REFERRING PHYSICIAN: Jacobo Dove M.D. REASON FOR EVALUATION: Lower extremity ischemia, both feet are cold. HISTORY OF PRESENT ILLNESS: This is an 89-year-old male, who is currently in the ICU, on vasopressor. The patient is altered. The patient was found to have left foot pre-gangrenous cyanosis up to the knee and both lower extremity were cold with cyanosis of blueness of both the toes. Vascular Surgery is consulted for further evaluation. The patient has an ejection fraction of 10% with clot in the left ventricle, on anticoagulation. The patient also had severe aortic valve stenosis, prior history of stroke, and jail resident. All the history is obtained from the medical records and his daughter at bedside. The patient is currently confused. Per daughter, the patient is nonambulatory. PAST MEDICAL HISTORY: As above. History of dementia, jail resident, non-ambulatory, prior history of stroke, aortic valve stenosis, ejection fraction of 10% with new clot. MEDICATIONS: See attached MAR. ALLERGIES: To nonsteroidal. SOCIAL HISTORY: Unobtainable. FAMILY HISTORY: Unobtainable. SYSTEMS REVIEW: Unobtainable due to the patient's altered mental status. PHYSICAL EXAMINATION: VITAL SIGNS: The patient is afebrile at 98 degrees, heart rate is 110, respirations 18, blood pressure is 100/60, the patient is on vasopressors, and saturation 100%. LUNGS: He has rhonchi bilaterally. HEART: Regular rate and rhythm. ABDOMEN: Soft and nontender. EXTREMITIES: He has palpable femoral pulses and weakly palpable popliteals with intact right posterior tibial Doppler's and absent left foot Doppler's. Both feet are cool. Cyanotic toes. The left leg and foot has pre-gangrenous cyanosis and necrosis up to below the knee with severe ischemia. The patient is currently on pressors. NEUROLOGIC: He is confused. IMPRESSION: 1. Bilateral blue-toe cyanosis with severe cold lower extremity ischemia with a pre-gangrenous left leg up to the knee. 2. Arrhythmia with low ejection fraction of 10% with new clot. 3. Shock. 4. Aortic valve stenosis. 5. Prior history of stroke. 6. [facility] resident. 7. Dementia. 8. Nonambulatory. RECOMMENDATIONS: Left leg is not salvageable. Will require leg above-knee amputation once medically optimized, and once fully demarcated and more stable, the patient needs to be on anticoagulation therapy. Cardiology evaluation optimization in progress. Continue with deep venous thrombosis and decubitus precautions. The above was discussed at length with the patient's nurse and the daughter at bedside. All their questions were answered. Estevan Bailey M.D. DR: SUMMER JOB#: [id number] CC: Estevan Bailey M.D.; Fax#: [phone] Dove M.D. ; Fax#: [phone] [facility]
--- NOTE | 2016-08-24 14:56 | Discharge Summary ---
Discharge Summary Hospital Course Date of Admission August 19, 2016 at 04:02 Date of Discharge August 20, 2016 at 19:42 Admitting Diagnosis ALTERED MENTAL STATUS, HYPOGLYCEMIA HPI Grace Mckinney is a 89 year old male who was admitted on August 19, 2016 at 04: 02 for Altered Mental Status/Hypoglycemia Hospital Course dc summary #[id number] Discharge Condition Upon Discharge: stable Discharge Disposition Patient was transferred to [facility] as per insurance Discharge Diagnoses: Discharge Instructions Discharge Instructions Special Instructions I have been assigned to complete a D/C Summary on this account. I was not involved in the patient management Rebecca Plaza NP (Vanchtein) August 24, 2016 14:56
--- NOTE | 2016-08-25 01:30 | Discharge Summary 2 SIG ---
DATE OF ADMISSION: 08/19/2016 DATE OF DISCHARGE: 08/20/2016 REASON FOR ADMISSION: 89-year-old male [facility] with a complaint of altered mental status and respiratory distress. Upon arrival of paramedics, the patient was found to be with critically low blood sugar. The patient was given glucagon after which he became more responsive, but still confused and unable to provide any history. No fevers. No chills. Nursing facility reported change in the patient's respiration overnight. No vomiting. No diarrhea. Workup in the emergency room revealed hypoxemia, and the patient was placed on 4 liters of supplemental oxygen with pulse oximetry only 91% . Central line was placed in the emergency department. The patient required multiple boluses of glucose to increase blood sugar level. Blood pressure remained low. The patient was started on dopamine drip. Chest x-ray revealed evidence of congestive heart failure, possible left lower lobe underlying pneumonia. Troponin was negative. CK was 4442. Pro BNP- 32,116. The patient required placement on BiPAP. ABG revealed evidence of metabolic acidosis.laboratory studies revealed; WBC- 13, CO2 -19, Anion gap- 18, BUN -107, Creatinine-3.3. Glucose at that time- 243. Lactic acid- 2.0. Urinalysis negative for evidence of urinary tract infection. EKG revealed normal sinus rhythm, no ischemic changes, prolonged QRS, nonspecific ST and T-wave changes, and evidence of pacer. CT head revealed no acute intracranial pathology, but demonstrated atrophy with ventriculomegaly, possible normal pressure hydrocephalus. The patient was admitted for further management. ADMITTING DIAGNOSES: 1. Acute respiratory failure, requiring BiPAP. 2. Sepsis 3. Possible pneumonia. 4. Acute on chronic renal failure. 5. Acute rhabdomyolysis. 6. Left ventricle clot. 7. Possible pulmonary edema. 8. Hypoglycemia. 9. Acute metabolic encephalopathy secondary to hypoglycemia. HOSPITAL STAY: The patient was admitted to intensive care unit. The patient was started on pressors. Respiratory status improved with the BiPAP. Over one day, the patient was able to be weaned from the BiPAP and placed on oxygen via nasal cannula with the FiO2 titration to keep saturation above 92%. Pulmonary toilet provided. The patient was started on pressor in the emergency department i.e., dopamine. Nephrology consult was requested due to the evidence of acute renal failure. The patient was pancultured and started on empiric antibiotics. ID consult was requested. Echocardiogram revealed ejection fraction of 10% to 15%, right ventricular systolic pressure of 65% consistent with severe pulmonary hypertension, evidence of valvular heart disease with moderate tricuspid regurgitation and [id number] mitral regurgitation, as well as a left ventricle thrombus demonstrated as a large echodensity, as well as a severe aortic stenosis. The patient was started on heparin drip. Noted bilateral embolic blue toes. Vascular Surgery consult was requested. Arterial duplex was requested. Vascular surgeon seen and evaluated the patient. According to vascular surgeon, the patient had a severe peripheral arterial disease and severe bilateral lower extremities ischemia. Left leg not salvageable. Per vascular surgeon, the patient will need left above-knee amputation after being medically optimized. The patient also in need of anticoagulation therapy at this point. The patient was on heparin drip as mentioned above. The patient will need cardiac optimization prior to surgery. Supervisor Sung[employer] followed with the renal failure and rhabdomyolysis. Renal parameters slowly trending down with gentle IV fluids. After one day, BUN down from 107 to 84, creatinine down from 3.3 to 2.3, and CK down from 4442 to 3447. Pro BNP without change. Follow up chest x-ray revealed increased hazy opacity of the right lung reflecting increased pleural fluid and/or increase in parenchymal edema or consolidation. ID followed. The patient was on empiric antibiotics. Blood culture negative. Sputum culture not collected. Troponin initially was negative. According to physical medicine physician, the patient has nonoliguric acute renal failure. The next day, pressors were titrated and the patient was able to be weaned from pressor. Blood pressure was stable. Blood sugar was low however, and the patient required intravenous boluses with dextrose to improve blood sugar. Prior to transfer, hypoglycemia was treated and blood sugar was stable afterwards. Wound care nurse seen the patient for the sacral decubitus stage II, present on admission. Wound care provided as per the wound care recommendation. The patient's status was optimized , and patient was able to be transferred to [facility] as per his insurance. DISCHARGE DIAGNOSES: 1. Acute respiratory failure, requiring BiPAP,- resolved. 2. Sepsis. 3. Possible pneumonia. 4. Nonoliguric acute renal failure. 5. Acute rhabdomyolysis. 6. Hypoglycemia. 7. Acute metabolic encephalopathy secondary to hypoglycemia and sepsis on chronic dementia. 8. Left ventricle clot. 9. Severe peripheral arterial disease. 10. Cardiomyopathy. 11. Severe bilateral embolic blue toes. 12. Severe pulmonary hypertension. 13. Urfssicb-pd-dudlpr mitral regurgitation. 14. Severe aortic stenosis. 15. Possible pulmonary edema 16. Sacral decubitus stage II , present on admission. DISCHARGE MEDICATIONS: Medication reconciliation list sent with the patient to admitting facility. DISCHARGE INSTRUCTIONS: The patient to follow up with medical doctor at the facility. Jacobo Dove M.D. I have been assigned to dictate discharge summary on this account and I was not involved in the patient's management. Rebecca AndersonConey Island Hospitalvinay N.PMalachi DR: PEBBLES JOB#: [id number] CC: KO
== END 2016-08-20 19:42 | disposition short-term general hospital (02) | DRG 871 ==
LOC: EDBD 02:58 → EMR 03:39 → EDBEDREQ 03:58 → EDBEDREQSVC 04:00 → ICU 04:02 → EDBEDREQ 05:10
PROC: 5A0935Z Assistance with Respiratory Ventilation, Less than 24 Consecutive Hours (ICD-10-PCS; principal; 2016-08-19)
PROC: 06HM33Z Insertion of Infusion Device into Right Femoral Vein, Percutaneous Approach (ICD-10-PCS; principal; 2016-08-19)
PROC: 3E043XZ Introduction of Vasopressor into Central Vein, Percutaneous Approach (ICD-10-PCS; 2016-08-19)
DX: A41.9 Sepsis, unspecified organism (principal); J18.9 Pneumonia, unspecified organism; J96.01 Acute respiratory failure with hypoxia; N17.9 Acute kidney failure, unspecified; G93.41 Metabolic encephalopathy; I74.3 Embolism and thrombosis of arteries of the lower extremities; I13.0 Hypertensive heart and chronic kidney disease with heart failure and stage 1 through stage 4 chronic kidney disease, or unspecified chronic kidney disease; L89.152 Pressure ulcer of sacral region, stage 2; E87.2 Acidosis; I50.9 Heart failure, unspecified; M62.82 Rhabdomyolysis; I42.9 Cardiomyopathy, unspecified; F03.90 Unspecified dementia, unspecified severity, without behavioral disturbance, psychotic disturbance, mood disturbance, and anxiety; I35.0 Nonrheumatic aortic (valve) stenosis; I73.9 Peripheral vascular disease, unspecified; I25.10 Atherosclerotic heart disease of native coronary artery without angina pectoris; M21.372 Foot drop, left foot; Z86.73 Personal history of transient ischemic attack (TIA), and cerebral infarction without residual deficits; E16.2 Hypoglycemia, unspecified; I34.0 Nonrheumatic mitral (valve) insufficiency; I27.2 Other secondary pulmonary hypertension; I36.1 Nonrheumatic tricuspid (valve) insufficiency; I99.8 Other disorder of circulatory system; I51.3 Intracardiac thrombosis, not elsewhere classified; Z95.810 Presence of automatic (implantable) cardiac defibrillator; N18.9 Chronic kidney disease, unspecified; Z79.82 Long term (current) use of aspirin
CPT/HCPCS: 36415; 36600; 70450; 71010; 80053; 81003; 82550; 82553; 82803; 82962; 83605; 83690; 83880; 84100; 84484; 85007; 85025; 85610; 85730; 87040; 87081; 93005; 93306; 93925; 94760